=== PATIENT | female | born 1950 | race Caucasian/White ===

== ENCOUNTER 2018-12-19 10:37 | Emergency (ER) | payer MEDICARE ==
[2018-12-19] MEDS ORDERED: Diphtheria,Pertussis(Acell),Tetanus Vaccine 0.5 ML SDV IM ONE (12:13)
--- NOTE | 2018-12-19 16:43 | EDM.PDOC ---
ED HPI GENERAL MEDICAL PROBLEM - General Chief Complaint: Head Injury Stated Complaint: FACIAL INJURY Time Seen by Provider: 12/19/18 12:30 Source of Information: Reports: Patient History Limitations: Reports: No Limitations - History of Present Illness INITIAL COMMENTS - FREE TEXT/NARRATIVE: This pleasant 68-year-old woman was working out on a rowing machine while exercising anytime fitness today. When she got up and tried to move away from the rowing machine she tripped over one of the arms of the rowing exercise machine and fell onto her face. She has mild neck discomfort denies headache. But she has a laceration upper lip and did not experience a fracture any of her teeth. She has history of trigeminal neuralgia which she treats with Tegretol 200 mg 2 tablets twice a day neurontin 300 mg 3 times a day and has rheumatoid arthritis which she treats with methotrexate and folic acid; depression, hypothyroidism GERD and peptic ulcer disease. She and her have moved in skilled nursing back to their roots in the [facility] after having lived and worked in the [facility] for many years. - Related Data Allergies Allergy/AdvReac Type Severity Reaction Status Date / Time No Known Allergies Allergy Verified 12/19/18 11:23 Home Meds: Home Meds Carvedilol [Coreg] 12.5 mg PO BID 12/19/18 [History] Citalopram Hydrobromide [Celexa] 40 mg PO DAILY 12/19/18 [History] Fluticasone Propionate [Flonase] 2 sprays INH DAILY 12/19/18 [History] Folic Acid 1 mg PO DAILY 12/19/18 [History] Gabapentin [Neurontin] 300 mg PO TID 12/19/18 [History] Levothyroxine Sodium [Synthroid] 125 mcg PO DAILY 12/19/18 [History] Methotrexate 25 mg PO Q7D 12/19/18 [History] Omeprazole 20 mg PO DAILY 12/19/18 [History] carBAMazepine [Epitol] 400 mg PO BID 12/19/18 [History] predniSONE [Prednisone] 5 mg PO DAILY 12/19/18 [History] Past Medical History Musculoskeletal History: Reports: Other (See Below) Other Musculoskeletal History: Hx of back problems. - Past Surgical History Female Surgical History: Reports: Hysterectomy Social & Family History - Tobacco Use Smoking Status *Q: Never Smoker ED ROS GENERAL - Review of Systems Review Of Systems: ROS reveals no pertinent complaints other than HPI. Cardiovascular: Reports: Other (1 year ago she was diagnosed with atrial flutter and placed on carvedilol 12.5 mg daily and that has worked well for her) Musculoskeletal: Reports: Other (Rheumatoid arthritis stable on her methotrexate and folic acid) Neurological: Reports: Other (Much of neuralgia which is stable on her current medicines) Psychiatric: Reports: Depression ED EXAM, HEAD INJURY - Physical Exam Exam: See Below Text/Narrative:: Pleasant and attended by an equally pleasant, talkative, and very friendly spouse. She is stoic an in mild distress over her upper lip laceration. She denies headache weakness numbness chest discomfort or upper lower extremity pain. Exam Limited By: No Limitations General Appearance: Alert, WD/WN, Mild Distress Head: Normocephalic, Other (Intra labial upper lip stellate 6 cm laceration) Eyes: Bilateral Eye: Normal Inspection Ears: Normal External Exam, Normal Canal, Hearing Grossly Normal, Normal TMs Throat/Mouth: Normal Inspection, Normal Teeth, Normal Gums, Normal Oropharynx, Normal Voice, Other (No dental trauma fracture of her incisors. Trace blood intraoral. Stellate laceration upper lip with a small 3 mm triangular rent in the vermilion border) Neck: Other (Minimal cervical paraspinal neck myalgia but no spinous process tenderness or step-off) Respiratory: No Respiratory Distress, Lungs Clear, Normal Breath Sounds, No Accessory Muscle Use, Chest Non-Tender Cardiovascular: Normal Peripheral Pulses, Regular Rate, Rhythm, No Edema, No Gallop, No JVD, No Murmur, No Rub GI/Abdominal Exam: Normal Bowel Sounds, Soft, Non-Tender, No Organomegaly, No Distention, No Abnormal Bruit (Female) Exam: Deferred Rectal (Female) Exam: Deferred Extremities: Normal Inspection, Normal Range of Motion, Non-Tender, No Pedal Edema, Normal Capillary 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 As Tested, No Motor/Sensory Deficits, Alert, Normal Mood/Affect DTR: 1+: Bicep (R), Bicep (L) Skin: Normal Color, Warm/Dry, Cyanosis Course - Vital Signs Last Recorded V/S: Last Vital Signs Temp 36.8 C 12/19/18 12:16 Pulse 73 12/19/18 12:16 Resp 17 12/19/18 12:16 BP 135/82 12/19/18 12:16 Pulse Ox 96 12/19/18 12:16 - Orders/Labs/Meds Orders: Active Orders 24 hr Category Date Time Status Vaccines to be Administered [RC] PER UNIT ROUTINE Care 12/19/18 12:14 Active Meds: Medications Discontinued Medications Generic Name Dose Route Start Last Admin Trade Name Freq PRN Reason Stop Dose Admin Diphtheria/Tetanus/Acell Pertussis 0.5 ml 12/19/18 12:13 12/19/18 12:22 Adacel IM 12/19/18 12:14 0.5 ml .ONCE ONE Administration - Re-Assessments/Exams Free Text/Narrative Re-Assessment/Exam: 12/19/18 16:55 6 cm laceration upper lip involves stellate 3 mm triangular laceration of the posterior. Mucosa and intraoral laceration wound was cleansed, injected with 1% lidocaine with epinephrine, closed with interrupted 6 stitches 4-0 Vicryl. Patient tolerated procedure well. No complications 12/19/18 16:56 Departure - Departure Time of Disposition: 13:30 (Stellate upper lip intraoral laceration with very small ovarian border 3 mm triangular separation/extension in to hte zuleyma border. While 4-0 Vicryl is quite a increased strength suture I shows a in hopes that it would be more stable and withstand the salivary secretions long enough to allow healing of the mucosal surfaces.) Disposition: Home, Self-Care 01 Condition: Good Clinical Impression: Contusion of vermilion border of upper lip Qualifiers: Encounter type: initial encounter Qualified Code(s): S00.531A - Contusion of lip, initial encounter Lip laceration Qualifiers: Encounter type: initial encounter Qualified Code(s): S01.511A - Laceration without foreign body of lip, initial encounter - Discharge Information *PRESCRIPTION DRUG MONITORING PROGRAM REVIEWED*: Not Applicable *COPY OF PRESCRIPTION DRUG MONITORING REPORT IN PATIENT CLIFF: Not Applicable Instructions: Laceration Care, Adult, [id number], Sutured Wound Care, Easy-to -Read Referrals: PCP,None [Ordering Only Provider] - Forms: ED Department Discharge Additional Instructions: Sutures out in 5-7 days apply bacitracin 2x/day - My Orders Last 24 Hours: My Active Orders 12/19/18 12:14 Vaccines to be Administered [RC] PER UNIT ROUTINE - Assessment/Plan Last 24 Hours: My Active Orders 12/19/18 12:14 Vaccines to be Administered [RC] PER UNIT ROUTINE
== END 2018-12-19 12:30 | disposition home or self-care (01) ==
LOC: FB.ED 10:37
DX: S01.511A Laceration without foreign body of lip, initial encounter (principal); W01.0XXA Fall on same level from slipping, tripping and stumbling without subsequent striking against object, initial encounter; Z79.899 Other long term (current) drug therapy; Z23 Encounter for immunization
CPT/HCPCS: 12013; 90471; 90715; 99282

== ENCOUNTER 2019-01-06 13:59 | Emergency (ER) | payer MEDICARE, OTHER ==
--- NOTE | 2019-01-07 04:27 | EDM.PDOC ---
ED HPI GENERAL MEDICAL PROBLEM - General Chief Complaint: Neurological Problem Stated Complaint: DIZZY LIGHT HEADED Time Seen by Provider: 01/06/19 14:30 Source of Information: Reports: Patient History Limitations: Reports: No Limitations - History of Present Illness INITIAL COMMENTS - FREE TEXT/NARRATIVE: 68-year-old woman chief complaint was cough. ON 12/22 18 she had onset of cough. She was seen in the clinic was prednisone 10 mg daily x 3 days. I treated her at 12/19 upper lip laceration. His past medical history significant for GERD hypothyroidism chronic pain and hypertension and rheumatoid arthritis. She is very concerned that she had a nasal bleed today. Denies lightheadedness. She had a small clot that came out of her nose.. - Related Data Allergies Allergy/AdvReac Type Severity Reaction Status Date / Time No Known Allergies Allergy Verified 01/06/19 14:13 Home Meds: Home Meds Carvedilol [Coreg] 12.5 mg PO BID 12/19/18 [History] Citalopram Hydrobromide [Celexa] 40 mg PO DAILY 12/19/18 [History] Fluticasone Propionate [Flonase] 2 sprays INH DAILY 12/19/18 [History] Folic Acid 1 mg PO DAILY 12/19/18 [History] Gabapentin [Neurontin] 300 mg PO TID 12/19/18 [History] Levothyroxine Sodium [Synthroid] 125 mcg PO DAILY 12/19/18 [History] Methotrexate 25 mg PO Q7D 12/19/18 [History] Omeprazole 20 mg PO DAILY 12/19/18 [History] carBAMazepine [Epitol] 400 mg PO BID 12/19/18 [History] predniSONE [Prednisone] 5 mg PO DAILY 12/19/18 [History] Azithromycin [Zithromax] 250 mg PO DAILY #6 tab 01/06/19 [Rx] Hydrocodone/Acetaminophen [Hydrocodon-Acetaminophen 5-325] 1 each PO Q4HR PRN # 16 tablet 01/06/19 [Rx] predniSONE [Prednisone] 40 mg PO DAILY 5 Days #5 tablet 01/06/19 [Rx] Past Medical History Cardiovascular History: Reports: Hypertension Musculoskeletal History: Reports: Other (See Below) Other Musculoskeletal History: Hx of back problems. Endocrine/Metabolic History: Reports: Hypothyroidism, Obesity/BMI 30+ - Past Surgical History Female Surgical History: Reports: Hysterectomy Social & Family History - Family History Family Medical History: Noncontributory - Tobacco Use Smoking Status *Q: Never Smoker Second Hand Smoke Exposure: No - Caffeine Use Caffeine Use: Reports: None - Recreational Drug Use Recreational Drug Use: No ED ROS GENERAL - Review of Systems Review Of Systems: ROS reveals no pertinent complaints other than HPI. ED EXAM, GENERAL - Physical Exam Exam: See Below Free Text/Narrative:: Pleasant lady attended by her in no acute stress. Exam Limited By: No Limitations General Appearance: Alert, WD/WN, No Apparent Distress Eye Exam: Bilateral Eye: Normal Inspection Ears: Normal External Exam, Normal Canal, Hearing Grossly Normal, Normal TMs Ear Exam: Bilateral Ear: Auricle Normal, Canal Normal, TM normal Nose: Other (Right nares small blood crusts noted. Nares are open.) Throat/Mouth: Normal Inspection, Normal Lips, Normal Teeth, Normal Gums, Normal Oropharynx, Normal Voice Head: Atraumatic, Normocephalic Neck: Normal Inspection, Supple, Non-Tender, Full Range of Motion, Other (No carotid bruits.) Respiratory/Chest: No Respiratory Distress, Lungs Clear, Normal Breath Sounds, No Accessory Muscle Use, Chest Non-Tender, Other (History of cough.) Cardiovascular: Normal Peripheral Pulses, Regular Rate, Rhythm, No Edema, No Gallop, No JVD, No Murmur, No Rub Peripheral Pulses: 1+: Radial (L), Radial (R) GI/Abdominal: Normal Bowel Sounds, Soft, Non-Tender, No Organomegaly, No Distention, No Abnormal Bruit, No Mass (Female) Exam: Deferred Rectal (Female) Exam: Deferred Back Exam: Normal Inspection Psychiatric: Normal Affect, Normal Mood Skin Exam: Warm, Dry, Intact Lymphatic: Adenopathy Course - Vital Signs Last Recorded V/S: Last Vital Signs Temp 36.8 C 01/06/19 15:12 Pulse 82 01/06/19 15:12 Resp 20 01/06/19 15:12 BP 102/79 01/06/19 15:12 Pulse Ox 97 01/06/19 15:12 Departure - Departure Time of Disposition: 15:00 (Diagnosis tracheitis. Patient is very concerned about the nasal bleed. Nasal bleeding is probably secondary to extensive coughing and also the constant many years use of cortisone spray to her nose. She now is exhibiting tachycardia for axis. And advised to stop the cortisone spray to her nose. This event probably undertreated with prednisone dose. Plan increase prednisone to 40 mg daily for 5 days and also start azithromycin to treat the tracheitis. Her lungs are clear no suggestion of pneumonia. She could have pertussis but I did not test for this. It is also possible she could have rhinitis. However the ladders lopremone.) Disposition: Home, Self-Care 01 Condition: Good Clinical Impression: Tracheitis, GERD without esophagitis Hypertension Qualifiers: Hypertension type: essential hypertension Qualified Code(s): I10 - Essential ( primary) hypertension Hypothyroidism Qualifiers: Hypothyroidism type: unspecified Qualified Code(s): E03.9 - Hypothyroidism, unspecified - Discharge Information *PRESCRIPTION DRUG MONITORING PROGRAM REVIEWED*: Not Applicable *COPY OF PRESCRIPTION DRUG MONITORING REPORT IN PATIENT CLIFF: Not Applicable Prescriptions: Hydrocodone/Acetaminophen [Hydrocodon-Acetaminophen 5-325] 1 each PO Q4HR PRN # 16 tablet PRN Reason: Cough Azithromycin [Zithromax] 250 mg PO DAILY #6 tab predniSONE [Prednisone] 40 mg PO DAILY 5 Days #5 tablet Instructions: Cough, Adult, [id number] Referrals: Abdulkadir Lion MD [Primary Care Provider] - Forms: ED Department Discharge Additional Instructions: You have a tracheitis. It's possible that azithromycin might be helpful for this. Take prednisone for 5 days. Both of these med diminish irritation and inflammation. the paroxysms of coughing and nasal discharge also irritate your nasla mucosa (lining) ane are part of the reason you have blood clots in your nose Apply a small wisp of bacitracin each nostril twice a day. This hydrates nasal mucosa. And allows it to repair itself. For the paroxsyms of cough I have prescribed hydrocodone take one tablet 4-6 hours to stop the coughing. Beware hydrocodone can be sedating so you cannot drive, you will not be on the top your game, may be drifty, and do not to get up on ladders or crawl rafters or scaffolds etc. follow up with your doctor in 7-14 days if not improved earlier if worse.
== END 2019-01-06 15:35 | disposition home or self-care (01) ==
LOC: FB.ED 13:59
DX: J04.10 Acute tracheitis without obstruction (principal); K21.9 Gastro-esophageal reflux disease without esophagitis; I10 Essential (primary) hypertension; E03.9 Hypothyroidism, unspecified; Z79.899 Other long term (current) drug therapy
CPT/HCPCS: 99284

== ENCOUNTER 2019-10-09 06:39 | Day surgery (SDC) | payer MEDICARE ==
[2019-10-09] MEDS ORDERED: Propofol 200 MG/20 ML SDV IV ONE (06:40)
[2019-10-09] MEDS ORDERED: Sodium Chloride 0.9% 10 ML Syringe FLUSH PRN (06:45)
[2019-10-09] MEDS ORDERED: Lactated Ringers 1,000 ML IV SCH (06:45)
--- NOTE | 2019-10-09 08:09 | PCM.OPNOTE ---
- General Post-Op/Procedure Note Date of Surgery/Procedure: 10/09/19 Operative Procedure(s): egd with bx Findings: gastroduodenitis retained food Pre Op Diagnosis: epigastric abd pain. hx of pud Post-Op Diagnosis: gastroduodenitis. retained food Anesthesia Technique: MAC Primary Surgeon: Jered Cabrera Anesthesia Provider: Trey Craft Pathology: stomach (antrum) duodenum Complications: None Condition: Good Free Text/Narrative:: see dictation
--- NOTE | 2019-10-09 15:22 | OR ---
DATE OF OPERATION: 10/09/2019 SURGEON: Jered Cabrera MD PROCEDURE PERFORMED: Upper endoscopy with cold forceps biopsy. PREOPERATIVE DIAGNOSIS: Personal history of epigastric pain and distant history of peptic ulcer disease. POSTOPERATIVE DIAGNOSIS: Gastroduodenitis and retained food. INDICATIONS FOR PROCEDURE: This is a 69-year-old white female who was referred with the above-mentioned complaints. She was offered and accepted an EGD. DESCRIPTION OF PROCEDURE: After an excellent IV sedation was administered, bite block was inserted. Flexible endoscope was passed without difficulty down the patient's esophagus into the stomach. The stomach was insufflated. Scope was passed through the pylorus to the second portion of the duodenum and slowly withdrawn. The following findings were noted. In first portion of the duodenum, there was some mild duodenitis, biopsies were taken. No evidence of ulcer disease. Stomach, in the antrum some erythema was noted as well as retained food. This precluded not documenting if there was anything under the food. We did do some biopsies of the inflamed tissue. The remainder of the esophageal exam was essentially unremarkable. The esophagus was unremarkable. The stomach was deflated, scope was removed. The patient tolerated the procedure well. /[id number] /MODL
== END 2019-10-09 09:07 | disposition home or self-care (01) ==
LOC: FB.SDS 06:39
PROVIDERS: ATTEND Surgery
DX: K29.90 Gastroduodenitis, unspecified, without bleeding (principal); K29.40 Chronic atrophic gastritis without bleeding; E03.9 Hypothyroidism, unspecified; M06.9 Rheumatoid arthritis, unspecified; Z87.11 Personal history of peptic ulcer disease; Z79.899 Other long term (current) drug therapy; Z79.52 Long term (current) use of systemic steroids
CPT/HCPCS: 43239; 88305; 88342; J2704; J7120

== ENCOUNTER 2021-06-29 09:50 | Emergency (ER) | payer MEDICARE ==
[2021-06-29] MEDS ORDERED: Sodium Chloride 0.9% 10 ML Syringe FLUSH PRN (10:00)
[2021-06-29] MEDS ORDERED: Sodium Chloride 0.9% 1,000 ML IV ONE (10:01)
--- NOTE | 2021-06-29 10:22 | EDM.PDOC ---
ED HPI GENERAL MEDICAL PROBLEM - General Chief Complaint: Syncope Stated Complaint: syncopal epsiode Time Seen by Provider: 06/29/21 09:50 Source of Information: Reports: Patient, Family History Limitations: Reports: No Limitations - History of Present Illness INITIAL COMMENTS - FREE TEXT/NARRATIVE: Patient had a syncopal episode yesterday in her bedroom, she lost consciousness for @2 seconds. Struck her head and injured her right leg when she fell. She presented to the [facility] today due to leg pain. A rapid response was called because the patient had another syncopal episode while there. She has been lightheaded since yesterday. Patient states she was unable to sleep last night due to right leg pain. Denies chest pain, SOB, fevers, abdominal pain, N/V/D, melena, or hematochezia. 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 Onset Date: 06/28/21 Duration: Day(s): (2) Severity: Moderate Right Lower Leg Pain Score (Numeric/FACES): 10 - Related Data Allergies Allergy/AdvReac Type Severity Reaction Status Date / Time No Known Allergies Allergy Verified 06/29/21 10:11 Home Meds: Home Meds Citalopram Hydrobromide [Celexa] 40 mg PO DAILY 12/19/18 [History] Fluticasone Propionate [Flonase] 2 sprays INH DAILY PRN 12/19/18 [History] Folic Acid 1 mg PO DAILY 12/19/18 [History] Gabapentin [Neurontin] 300 mg PO TID 12/19/18 [History] Levothyroxine Sodium [Synthroid] 112 mcg PO DAILY 12/19/18 [History] Methotrexate 2.5 mg PO FR 12/19/18 [History] Omeprazole 20 mg PO DAILY 12/19/18 [History] carvediloL [Coreg] 12.5 mg PO BID 12/19/18 [History] predniSONE [Prednisone] 5 mg PO DAILY 12/19/18 [History] Biotin 10,000 mcg PO DAILY 10/05/19 [History] Cetirizine [ZyrTEC] 10 mg PO DAILY 10/05/19 [History] Cyanocobalamin (Vitamin B-12) [B-12] 1,000 mcg PO DAILY 10/05/19 [History] Pyridoxine HCl (Vitamin B6) [Vitamin B-6] 100 mg PO DAILY 10/05/19 [History] carBAMazepine [Epitol] 200 mg PO TID 10/05/19 [History] polyethylene glycoL 3350 [MiraLAX] 17 gm PO DAILY 10/05/19 [History] Amoxicillin/Clavulanate K [Augmentin 875-125 MG] 1 tab PO BID #14 tablet 06/29/21 [Rx] Past Medical History HEENT History: Reports: None Cardiovascular History: Reports: Afib, Hypertension Respiratory History: Reports: None Gastrointestinal History: Reports: PUD Genitourinary History: Reports: None [employer] History: Reports: Musculoskeletal History: Reports: Arthritis Other Musculoskeletal History: Hx of back problems. Neurological History: Reports: Other (See Below) Other Neuro History: TRIGEMINAL NEURALGIA OF LEFT SIDE OF THE FACE Psychiatric History: Reports: None Endocrine/Metabolic History: Reports: Hypothyroidism, Obesity/BMI 30+ Hematologic History: Reports: None Immunologic History: Reports: None Oncologic (Cancer) History: Reports: None Dermatologic History: Reports: None - Past Surgical History Head Surgeries/Procedures: Reports: None HEENT Surgical History: Reports: None Cardiovascular Surgical History: Reports: None Respiratory Surgical History: Reports: None GI Surgical History: Reports: Colonoscopy, EGD Female Surgical History: Reports: Hysterectomy Endocrine Surgical History: Reports: None Neurological Surgical History: Reports: None Musculoskeletal Surgical History: Reports: Arthroscopic Knee, Other (See Below) Other Musculoskeletal Surgeries/Procedures:: BACK SURGERY Oncologic Surgical History: Reports: None Dermatological Surgical History: Reports: None Social & Family History - Family History Family Medical History: No Pertinent Family History - Caffeine Use Caffeine Use: Reports: None ED ROS GENERAL - Review of Systems Review Of Systems: Comprehensive ROS is negative, except as noted in HPI. - Physical Exam Exam: See Below Exam Limited By: No Limitations General Appearance: Alert, WD/WN, No Apparent Distress Eye Exam: Bilateral Eye: EOMI, PERRL Throat/Mouth: No Airway Compromise Head Exam: Atraumatic, Normocephalic Neck: Non-Tender Respiratory/Chest: No Respiratory Distress, Lungs Clear, Normal Breath Sounds Cardiovascular: Regular Rate, Rhythm, No Murmur GI/Abdominal: Normal Bowel Sounds, Soft, Non-Tender, No Distention Neuro Exam (Abbreviated): Alert, Oriented, CN II-XII Intact, Normal Cognition, No Motor/Sensory Deficits Back Exam: Full Range of Motion Extremities: Normal Range of Motion, Normal Capillary Refill, Other (right lateral ankle, foot and lower leg tenderness, no swelling or deformity) Psychiatric: Normal Affect, Normal Mood Skin Exam: Warm, Dry, Intact #1 Interpretation EKG Date: 06/29/21 Time: 09:47 Rhythm: A-Fib Rate (Beats/Min): 99 [place]: Normal P-Wave: Absent QRS: Normal ST-T: Other (flipped t waves anterolateral leads) Comparison: NA - No Prior EKG Course - Vital Signs Last Recorded V/S: Last Vital Signs Temp 36.8 C 06/29/21 09:50 Pulse 109 H 06/29/21 12:30 Resp 16 06/29/21 12:30 BP 125/95 H 06/29/21 12:30 Pulse Ox 95 06/29/21 12:30 Orthostatic Blood Pressure [ 117/62 Standing] Orthostatic Blood Pressure [ 120/82 Sitting] Orthostatic Blood Pressure [ 143/85 Supine] - Orders/Labs/Meds Orders: Active Orders 24 hr Category Date Time Status EKG Documentation Completion [RC] ASDIRECTED Care 06/29/21 09:59 Active Orthostatic Vital Signs [RC] ASDIRECTED Care 06/29/21 10:43 Active Ang Chest [CT] Stat Exams 06/29/21 10:55 Taken Ankle Min 3V Rt [CR] Stat Exams 06/29/21 10:02 Taken CXR [Chest 1V Frontal] [CR] Stat Exams 06/29/21 09:59 Taken Cervical Spine wo Cont [CT] Stat Exams 06/29/21 10:00 Taken Foot Comp Min 3V Rt [CR] Stat Exams 06/29/21 10:02 Taken Head wo Cont [CT] Stat Exams 06/29/21 10:00 Taken Pelvis 1V or 2V [CR] Stat Exams 06/29/21 10:00 Taken Tibia Fibula Rt [CR] Stat Exams 06/29/21 10:02 Taken CULTURE BLOOD [BC] Urgent Lab 06/29/21 10:02 Received CULTURE BLOOD [BC] Urgent Lab 06/29/21 10:22 Received CULTURE URINE [RM] Stat Lab 06/29/21 11:48 Received Amoxicillin/Clavulanate K [Augmentin 875 MG/125 MG] Med 06/29/21 12:50 Once 1 tab PO ONETIME ONE Sodium Chloride 0.9% [Saline Flush] Med 06/29/21 10:00 Active 10 ml FLUSH ASDIRECTED PRN Blood Culture x2 Reflex Set [OM.PC] Urgent Oth 06/29/21 09:58 Ordered Saline Lock Insert [OM.PC] Routine Oth 06/29/21 10:00 Ordered EKG 12 Lead [EK] Stat Ther 06/29/21 09:58 Ordered Medication Orders Sodium Chloride (Sodium Chloride 0.9% 10 Ml Syringe) 10 ml FLUSH ASDIRECTED PRN PRN Reason: Keep Vein Open Last Admin: 06/29/21 09:52 Dose: 10 ml Documented by: CYNTHIA Labs: Laboratory Tests 06/29/21 06/29/21 06/29/21 Range/Units 10:02 10:02 10:02 WBC 7.5 (3.0-10.3) x10-3/uL RBC 3.71 (3.60-5.20) x10(6)uL Hgb 11.5 (11.4-15.5) g/dL Hct 34.7 (34.2-48.2) % MCV 93.5 (76.7-100.5) fL MCH 30.9 (23.9-33.9) pg MCHC 33.1 (31.9-34.8) g/dL RDW 15.4 (12.3-16.5) % Plt Count 336 (151-488) x10(3)uL MPV 6.3 L (7.1-12.4) fL Neut % (Auto) 78.1 H (30.8-76.2) % Lymph % (Auto) 13.5 L (18.4-52.1) % [place] % (Auto) 4.3 L (4.4-15.7) % Eos % (Auto) 3.5 (0.6-8.1) % Baso % (Auto) 0.6 (0.2-1.5) % Neut # (Auto) 5.8 (1.5-6.3) x10-3/uL Lymph # (Auto) 1.0 (1.0-4.4) x10-3/uL [place] # (Auto) 0.3 (0.3-1.0) x10-3/uL Eos # (Auto) 0.3 (0.0-0.8) x10-3/uL Baso # (Auto) 0.0 (0.0-0.1) x10-3/uL PT 11.4 H (9.0-11.1) sec INR 1.06 (1.00-1.24) APTT 27.3 (24.4-33.2) SECONDS D-Dimer, Quantitative 6.63 H (0.0-0.59) mg/LFEU Sodium 133 L (135-145) mmol/L Potassium 4.0 (3.5-5.3) mmol/L Chloride 97 L (100-110) mmol/L Carbon Dioxide 26 (21-32) mmol/L BUN 18 (7-18) mg/dL Creatinine 1.0 (0.55-1.02) mg/dL Est Cr Clr Drug Dosing 43.91 mL/min Estimated GFR (MDRD) 55 L (>60) BUN/Creatinine Ratio 18.0 (9-20) Glucose 131 H (80-116) mg/dL Lactic Acid (0.4-2.0) mmol/L Calcium 8.1 L (8.6-10.2) mg/dL Magnesium (1.8-2.5) mg/dL Total Bilirubin 0.7 (0.1-1.3) mg/dL AST 25 (5-25) IU/L ALT 24 (12-36) U/L Alkaline Phosphatase 101 (56-112) IU/L Troponin I (4.0-60.3) pg/mL Total Protein 6.7 (6.0-8.0) g/dL Albumin 3.4 (3.2-4.6) g/dL Globulin 3.3 g/dL Albumin/Globulin Ratio 1.0 Urine Color (YELLOW) Urine Appearance (CLEAR) Urine pH (5.0-6.5) Ur Specific [place] (1.010-1.025) Urine Protein (NEGATIVE) mg/dL Urine Glucose (UA) (NORMAL) mg/dL Urine Ketones (NEGATIVE) mg/dL Urine Occult Blood (NEGATIVE) Urine Nitrite (NEGATIVE) Urine Bilirubin (NEGATIVE) Urine Urobilinogen (NEGATIVE) mg/dL Ur Leukocyte Esterase (NEGATIVE) Urine RBC (0-5) Urine WBC (0-5) Ur Squamous Epith Cells (NS,R,O) Urine Bacteria (NS) 06/29/21 06/29/21 06/29/21 Range/Units 10:02 10:02 10:22 WBC (3.0-10.3) x10-3/uL RBC (3.60-5.20) x10(6)uL Hgb (11.4-15.5) g/dL Hct (34.2-48.2) % MCV (76.7-100.5) fL MCH (23.9-33.9) pg MCHC (31.9-34.8) g/dL RDW (12.3-16.5) % Plt Count (151-488) x10(3)uL MPV (7.1-12.4) fL Neut % (Auto) (30.8-76.2) % Lymph % (Auto) (18.4-52.1) % [place] % (Auto) (4.4-15.7) % Eos % (Auto) (0.6-8.1) % Baso % (Auto) (0.2-1.5) % Neut # (Auto) (1.5-6.3) x10-3/uL Lymph # (Auto) (1.0-4.4) x10-3/uL [place] # (Auto) (0.3-1.0) x10-3/uL Eos # (Auto) (0.0-0.8) x10-3/uL Baso # (Auto) (0.0-0.1) x10-3/uL PT (9.0-11.1) sec INR (1.00-1.24) APTT (24.4-33.2) SECONDS D-Dimer, Quantitative (0.0-0.59) mg/LFEU Sodium (135-145) mmol/L Potassium (3.5-5.3) mmol/L Chloride (100-110) mmol/L Carbon Dioxide (21-32) mmol/L BUN (7-18) mg/dL Creatinine (0.55-1.02) mg/dL Est Cr Clr Drug Dosing mL/min Estimated GFR (MDRD) (>60) BUN/Creatinine Ratio (9-20) Glucose (80-116) mg/dL Lactic Acid 1.4 (0.4-2.0) mmol/L Calcium (8.6-10.2) mg/dL Magnesium 1.8 (1.8-2.5) mg/dL Total Bilirubin (0.1-1.3) mg/dL AST (5-25) IU/L ALT (12-36) U/L Alkaline Phosphatase (56-112) IU/L Troponin I 5.5 (4.0-60.3) pg/mL Total Protein (6.0-8.0) g/dL Albumin (3.2-4.6) g/dL Globulin g/dL Albumin/Globulin Ratio Urine Color (YELLOW) Urine Appearance (CLEAR) Urine pH (5.0-6.5) Ur Specific [place] (1.010-1.025) Urine Protein (NEGATIVE) mg/dL Urine Glucose (UA) (NORMAL) mg/dL Urine Ketones (NEGATIVE) mg/dL Urine Occult Blood (NEGATIVE) Urine Nitrite (NEGATIVE) Urine Bilirubin (NEGATIVE) Urine Urobilinogen (NEGATIVE) mg/dL Ur Leukocyte Esterase (NEGATIVE) Urine RBC (0-5) Urine WBC (0-5) Ur Squamous Epith Cells (NS,R,O) Urine Bacteria (NS) 06/29/21 Range/Units 11:48 WBC (3.0-10.3) x10-3/uL RBC (3.60-5.20) x10(6)uL Hgb (11.4-15.5) g/dL Hct (34.2-48.2) % MCV (76.7-100.5) fL MCH (23.9-33.9) pg MCHC (31.9-34.8) g/dL RDW (12.3-16.5) % Plt Count (151-488) x10(3)uL MPV (7.1-12.4) fL Neut % (Auto) (30.8-76.2) % Lymph % (Auto) (18.4-52.1) % [place] % (Auto) (4.4-15.7) % Eos % (Auto) (0.6-8.1) % Baso % (Auto) (0.2-1.5) % Neut # (Auto) (1.5-6.3) x10-3/uL Lymph # (Auto) (1.0-4.4) x10-3/uL [place] # (Auto) (0.3-1.0) x10-3/uL Eos # (Auto) (0.0-0.8) x10-3/uL Baso # (Auto) (0.0-0.1) x10-3/uL PT (9.0-11.1) sec INR (1.00-1.24) APTT (24.4-33.2) SECONDS D-Dimer, Quantitative (0.0-0.59) mg/LFEU Sodium (135-145) mmol/L Potassium (3.5-5.3) mmol/L Chloride (100-110) mmol/L Carbon Dioxide (21-32) mmol/L BUN (7-18) mg/dL Creatinine (0.55-1.02) mg/dL Est Cr Clr Drug Dosing mL/min Estimated GFR (MDRD) (>60) BUN/Creatinine Ratio (9-20) Glucose (80-116) mg/dL Lactic Acid (0.4-2.0) mmol/L Calcium (8.6-10.2) mg/dL Magnesium (1.8-2.5) mg/dL Total Bilirubin (0.1-1.3) mg/dL AST (5-25) IU/L ALT (12-36) U/L Alkaline Phosphatase (56-112) IU/L Troponin I (4.0-60.3) pg/mL Total Protein (6.0-8.0) g/dL Albumin (3.2-4.6) g/dL Globulin g/dL Albumin/Globulin Ratio Urine Color Yellow (YELLOW) Urine Appearance Clear (CLEAR) Urine pH 6.0 (5.0-6.5) Ur Specific [place] 1.010 (1.010-1.025) Urine Protein Negative (NEGATIVE) mg/dL Urine Glucose (UA) Normal (NORMAL) mg/dL Urine Ketones Negative (NEGATIVE) mg/dL Urine Occult Blood Negative (NEGATIVE) Urine Nitrite Positive H (NEGATIVE) Urine Bilirubin Negative (NEGATIVE) Urine Urobilinogen Normal (NEGATIVE) mg/dL Ur Leukocyte Esterase Moderate H (NEGATIVE) Urine RBC 0-5 (0-5) Urine WBC 20-30 H (0-5) Ur Squamous Epith Cells Rare (NS,R,O) Urine Bacteria Many H (NS) Meds: Medications Generic Name Dose Route Start Last Admin Trade Name Freq PRN Reason Stop Dose Admin Sodium Chloride 10 ml 06/29/21 10:00 06/29/21 09:52 Sodium Chloride 0.9% 10 Ml Syringe FLUSH 10 ml ASDIRECTED PRN Administration Keep Vein Open Discontinued Medications Generic Name Dose Route Start Last Admin Trade Name Freq PRN Reason Stop Dose Admin Sodium Chloride 1,000 mls @ 999 mls/hr 06/29/21 10:01 06/29/21 10:00 Normal Saline IV 06/29/21 11:01 999 mls/hr .BOLUS ONE Administration Iopamidol 75 ml 06/29/21 11:04 06/29/21 11:28 Iopamidol 755 Mg/Ml 75 Ml Bottle IV 06/29/21 11:05 75 ml ASDIRECTED ONE Administration - Radiology Interpretation Free Text/Narrative:: CXR: No acute process. (ED provider interpretation) Pelvis XR: No fracture or dislocation. (ED provider interpretation) Right Tib Fib XR: No fracture or dislocation. (ED provider interpretation) Right Ankle XR: No fracture or dislocation. (ED provider interpretation) Right Foot XR: No fracture or dislocation. (ED provider interpretation) CT Head s/ contrast: IMPRESSION: No acute intracranial hemorrhage or mass effect. Dictated by Young Crook MD @ 06/29/2021 10:48:[address] C-spine s/ contrast: IMPRESSION: 1. No acute fracture or traumatic subluxation. 2. Multilevel cervical spondylosis. Dictated by Young Crook MD @ 06/29/2021 10:53:41 AM CTA Chest: Impression: No evidence of pulmonary embolism. Elevation right hemidiaphragm. Right adrenal mass, a dedicated adrenal protocol CT is recommended when patient is clinically stable. Questionable left 10th rib fracture Dictated by Dara Leslie MD @ 06/29/2021 12:19:20 PM - Re-Assessments/Exams Free Text/Narrative Re-Assessment/Exam: 06/29/21 12:53 Initial BP 77/54 improved with IVF (1L NS). Now normotensive. Orthostatics normal. Denies lightheadedness/dizziness. Departure - Departure Time of Disposition: 12:54 Disposition: Home, Self-Care 01 Condition: Good Clinical Impression: Syncope due to orthostatic hypotension Ankle sprain Qualifiers: Encounter type: initial encounter Involved ligament of ankle: unspecified ligament Laterality: right Qualified Code(s): S93.401A - Sprain of unspecified ligament of right ankle, initial encounter UTI (urinary tract infection) Qualifiers: Urinary tract infection type: acute cystitis Hematuria presence: without hematuria Qualified Code(s): N30.00 - Acute cystitis without hematuria - Discharge Information *PRESCRIPTION DRUG MONITORING PROGRAM REVIEWED*: No *COPY OF PRESCRIPTION DRUG MONITORING REPORT IN PATIENT CLIFF: Not Applicable Prescriptions: Amoxicillin/Clavulanate K [Augmentin 875-125 MG] 1 tab PO BID #14 tablet Instructions: Ankle Sprain, [id number], Dehydration, Adult, [id number], Syncope, Rqty-st-Rrhz, Urinary Tract Infection, Adult, [id number], Adrenal Adenoma, Atrial Fibrillation, [id number] Referrals: Abdulkadir Lion MD [Primary Care Provider] - 2 Days Forms: ED Department Discharge Additional Instructions: Fill the prescription for Augmentin at [facility] in [place]. Drink plenty of fluids. Weight bear as tolerated, use your walker. Take Tylenol for pain. Follow up with your Primary Physician in 2 days regarding the syncope, ankle sprain, adrenal mass, and atrial fibrillation. Return to the ER if symptoms worsen or with any concerns. Sepsis Event Note (ED) - Evaluation Sepsis Screening Result: No Definite Risk - Focused Exam Vital Signs: Vital Signs Temp Pulse Resp BP Pulse Ox Pulse Ox 06/29/21 12:30 109 H 16 125/95 H 95 06/29/21 12:08 100 14 127/84 92 L 06/29/21 11:08 99 18 126/77 96 06/29/21 10:40 98 16 124/76 95 06/29/21 10:10 93 L 06/29/21 09:50 36.8 C 105 H 18 136/106 H 90 L - My Orders Last 24 Hours: My Active Orders 06/29/21 09:58 Blood Culture x2 Reflex Set [OM.PC] Urgent EKG 12 Lead [EK] Stat 06/29/21 09:59 EKG Documentation Completion [RC] ASDIRECTED CXR [Chest 1V Frontal] [CR] Stat 06/29/21 10:00 Cervical Spine wo Cont [CT] Stat Head wo Cont [CT] Stat Pelvis 1V or 2V [CR] Stat Sodium Chloride 0.9% [Saline Flush] 10 ml FLUSH ASDIRECTED PRN Saline Lock Insert [OM.PC] Routine 06/29/21 10:02 Ankle Min 3V Rt [CR] Stat Foot Comp Min 3V Rt [CR] Stat Tibia Fibula Rt [CR] Stat CULTURE BLOOD [BC] Urgent 06/29/21 10:22 CULTURE BLOOD [BC] Urgent 06/29/21 10:43 Orthostatic Vital Signs [RC] ASDIRECTED 06/29/21 10:55 Ang Chest [CT] Stat 06/29/21 11:48 CULTURE URINE [RM] Stat 06/29/21 12:50 Amoxicillin/Clavulanate K [Augmentin 875 MG/125 MG] 1 tab PO ONETIME ONE - Assessment/Plan Last 24 Hours: My Active Orders 06/29/21 09:58 Blood Culture x2 Reflex Set [OM.PC] Urgent EKG 12 Lead [EK] Stat 06/29/21 09:59 EKG Documentation Completion [RC] ASDIRECTED CXR [Chest 1V Frontal] [CR] Stat 06/29/21 10:00 Cervical Spine wo Cont [CT] Stat Head wo Cont [CT] Stat Pelvis 1V or 2V [CR] Stat Sodium Chloride 0.9% [Saline Flush] 10 ml FLUSH ASDIRECTED PRN Saline Lock Insert [OM.PC] Routine 06/29/21 10:02 Ankle Min 3V Rt [CR] Stat Foot Comp Min 3V Rt [CR] Stat Tibia Fibula Rt [CR] Stat CULTURE BLOOD [BC] Urgent 06/29/21 10:22 CULTURE BLOOD [BC] Urgent 06/29/21 10:43 Orthostatic Vital Signs [RC] ASDIRECTED 06/29/21 10:55 Ang Chest [CT] Stat 06/29/21 11:48 CULTURE URINE [RM] Stat 06/29/21 12:50 Amoxicillin/Clavulanate K [Augmentin 875 MG/125 MG] 1 tab PO ONETIME ONE
[2021-06-29] MEDS ORDERED: Iopamidol 755 Mg/ML 75 ML Bottle IV ONE (11:04)
[2021-06-29] MEDS ORDERED: Amoxicillin/Clavulanate K 875-125 MG Tab PO ONE (12:50)
--- NOTE | 2021-06-30 10:34 | CR ---
INDICATION: Injury. RIGHT FOOT: Three views of the right foot revealed a moderate size plantar calcaneal spur. Soft tissue swelling is noted overlying the dorsum of the foot at the level of the metatarsals - metatarsal phalangeal joints. Mild degree of lateral bunion deformity is noted. Minimal degenerative changes are noted at the first metatarsal phalangeal joint and interphalangeal joint of the great toe as well as at the talonavicular joint and very minimally at the calcaneocuboid joint. Mild degenerative changes are noted at the PIPJ of the fifth toe and at the DIPJs in general. There are fractures noted at the distal metaphyses of the second and third metatarsals with slight lateral offset of the distal fracture fragments. IMPRESSION: 1. Fractures with adequate position and alignment at the distal metaphyses of the second and third metatarsals. 2. Osteoarthritis. 3. Heel spur. MTDD
--- NOTE | 2021-06-30 10:38 | CR ---
INDICATION: Injury. RIGHT ANKLE: Three views of the right ankle revealed mild degenerative changes at the ankle mortise. The ankle mortise space appears to be symmetrical, however, with talar dome intact and no definite evidence for an acute fracture or dislocation. There does appear to be mild soft tissue swelling about the ankle. IMPRESSION: 1. No acute fracture or dislocation. 2. Mild osteoarthritis. 3. Soft tissue swelling. MTDD
--- NOTE | 2021-06-30 10:41 | CR ---
INDICATION: Injury. RIGHT TIBIA/FIBULA: Frontal and lateral views of the right tibial and fibula revealed mild hypertrophic degenerative changes at the intercondylar spines and of the femur and tibia on the right compatible with osteoarthritis. There are some minimal patellofemoral hypertrophic degenerative changes also noted. Degenerative changes are also noted of mild degree at the ankle mortise. An acute fracture or dislocation was not identified. MTDD
--- NOTE | 2021-06-30 10:49 | CR ---
INDICATION: Fall. PELVIS: Single frontal view of the pelvis was obtained. Detail was somewhat less than ideal. However, a definite fracture or dislocation was not identified. with sacroiliac joints showing mild degenerative changes, right greater than left. Minimal degenerative changes are noted at the hip joints fairly symmetrically. Overlying artifacts are noted. IMPRESSION: 1. No acute fracture or dislocation. 2. If occult fracture site is suspected clinically, more advanced imaging may be helpful ,as well as simple repeat x-rays in 10 to 14 days. MTDD
--- NOTE | 2021-06-30 10:55 | CR ---
INDICATION: Syncope. CHEST: AP Trendelenburg view of the chest was obtained portable at 55 inches 06/29/21 and compared with 09/09/20 and 10/25/19. The heart did not appear enlarged. The aorta is moderately tortuous. Overlying EKG leads are noted. Elevated right hemidiaphragm is again noted of questionable significance most likely at least partly anatomic. Pulmonary vasculature is prominent in the upper lung azul most likely on the basis of Trendelenburg positioning. A definite active infiltrate or effusion was not identified. IMPRESSION: 1. No definite acute process. 2. When clinically possible, full inspiration PA and lateral views of the chest may be helpful for further evaluation. MTDD
== END 2021-06-29 13:15 | disposition home or self-care (01) ==
LOC: FB.ED 09:50
DX: S93.401A Sprain of unspecified ligament of right ankle, initial encounter (principal); N30.00 Acute cystitis without hematuria; I95.1 Orthostatic hypotension; I48.91 Unspecified atrial fibrillation; I10 Essential (primary) hypertension; E03.9 Hypothyroidism, unspecified; E66.9 Obesity, unspecified; Z68.29 Body mass index [BMI] 29.0-29.9, adult; Z79.899 Other long term (current) drug therapy; W18.09XA Striking against other object with subsequent fall, initial encounter
CPT/HCPCS: 36415; 70450; 71045; 71275; 72125; 72170; 73590; 73610; 73630; 80053; 81001; 83605; 83735; 84484; 85025; 85379; 85610; 85730; 87040; 87086; 87088; 87186; 93005; 99284; A9270; J7030; Q9967

== ENCOUNTER 2023-09-06 22:51 | Emergency (ER) | payer MEDICARE ==
[2023-09-06] MEDS ORDERED: Acetaminophen/HYDROcodone 325-5 MG Tab PO ONE (23:37)
== END 2023-09-07 01:47 | disposition home or self-care (01) ==
LOC: FB.ED 22:51
DX: S09.90XA Unspecified injury of head, initial encounter (principal); S20.211A Contusion of right front wall of thorax, initial encounter; E66.9 Obesity, unspecified; I48.91 Unspecified atrial fibrillation; I10 Essential (primary) hypertension; Z95.0 Presence of cardiac pacemaker; Z68.33 Body mass index [BMI] 33.0-33.9, adult; W01.0XXA Fall on same level from slipping, tripping and stumbling without subsequent striking against object, initial encounter
CPT/HCPCS: 70450; 71101-RT; 73030-50; 93005; 99285; A9270-GY

== ENCOUNTER 2024-10-04 11:54 | Emergency (ER) | payer MEDICARE ==
[2024-10-04] MEDS ORDERED: Sodium Chloride 0.9% 10 ML Syringe FLUSH PRN (11:57)
[2024-10-04 12:10] LABS: HEMATOCRIT 38.1 % (34.2-48.2); HEMOGLOBIN 12.9 g/dL (11.4-15.5); MEAN CORPUSCULAR HEMOGLOBIN 29.5 pg (23.9-33.9); MEAN CORPUSCULAR HGB CONC 33.8 g/dL (31.9-34.8); MEAN CORPUSCULAR VOLUME 87.1 fL (76.7-100.5); MEAN PLATELET VOLUME 7.4 fL (7.1-12.4); PLATELET COUNT,PLT 223 x10(3)uL (151-488); RED BLOOD CELL COUNT 4.38 x10(6)uL (3.60-5.20); RED CELL DISTRIBUTION WIDTH 13.9 % (12.3-16.5); WHITE BLOOD CELL COUNT,WBC 7.9 x10-3/uL (3.0-10.3)
[2024-10-04 12:12] LABS: BLOOD UREA NITROGEN,BUN 19 mg/dL (7-18); BUN/CREATININE RATIO 15.8 (9-20); CALCIUM 9.1 mg/dL (8.6-10.2); CARBON DIOXIDE,CO2 29 mmol/L (21-32); CHLORIDE,CL 101 mmol/L (100-110); CREATININE 1.2 mg/dL (0.55-1.02); ESTIMATED GFR 47 mL/min (>60); GLUCOSE RANDOM 96 mg/dL (80-116); SODIUM,NA 138 mmol/L (135-145)
[2024-10-04 12:18] LABS: ALANINE AMINOTRANSFERASE,ALT 27 U/L (12-36); ALBUMIN 3.7 g/dL (3.2-4.6); ALKALINE PHOSPHATASE 104 IU/L (56-112); ASPARTATE AMNIOTRANSFERASE,AST 21 IU/L (5-25); BILIRUBIN TOTAL 0.3 mg/dL (0.1-1.3); INR 1.78 (1.00-1.24); PROTEIN TOTAL,TP 7.4 g/dL (6.0-8.0); PROTHROMBIN TIME 17.7 sec (9.0-11.1); PTT,PARTIAL THROMBOPLSTIN TIME 45.3 SECONDS (24.4-33.2)
[2024-10-04] MEDS: Sodium Chloride 0.9% 1,000 ML IV SCH ×2 (12:22→13:32)
[2024-10-04] MEDS: Acetaminophen 500 MG Tab PO ONE (12:24)
[2024-10-04 12:31] LABS: LYMPHOCYTES PERCENT MAN 20 % (13-37); MONOCYTES PERCENT MAN 18 % (4-12); SEG NEUTROPHILS PERCENT MAN 62 % (46-82)
[2024-10-04 12:34] LABS: LACTIC ACID 1.2 mmol/L (0.4-2.0)
[2024-10-04] MEDS: Dexamethasone 4 MG/ML SDV IVPUSH ONE (13:16)
[2024-10-04] MEDS: REMDESIVIR 200 MG in Sodium Chloride 0.9% 250 ML IV ONE (13:32)
== END 2024-10-04 14:59 ==
LOC: FB.ED 11:54
DX: U07.1 COVID-19 (principal); G93.40 Encephalopathy, unspecified; R79.1 Abnormal coagulation profile; I10 Essential (primary) hypertension; E03.9 Hypothyroidism, unspecified; E66.9 Obesity, unspecified; Z90.710 Acquired absence of both cervix and uterus; Z79.890 Hormone replacement therapy; Z79.52 Long term (current) use of systemic steroids; Z79.899 Other long term (current) drug therapy
CPT/HCPCS: 36415; 70450; 71045; 80053; 83605; 84484; 85025; 85610; 85730; 86140; 87040; 87428-QW; 93005; 93010; 96361; 96365; 96375; 99285; 99285-25; A9270-GY; J0248; J1100; J7030; J7050